=== PATIENT | female | born 1955 | race Caucasian/White ===

== ENCOUNTER 2019-06-14 10:07 | Emergency (ER) | payer MEDICARE, BC ==
[~2019-06-14] VITALS: Ht 177.8 cm; Wt 58.1 kg
--- NOTE | 2019-06-15 19:59 | EKG ---
[facility] [address] [place] [address] Signed Normal sinus rhythm Normal ECG No previous ECGs available Confirmed by LISA HE MD ([id number]) on 06/15/2019 7:59:22 PM Electronically Signed By: LISA HE MD 06/15/191958 PATIENT NAME: SHARMILA CHATMANHAROON Electrocardiogram DATE OF : 59 PHYSICIAN: LISA HE MD REPORT #: [id number] REPORT IS CONFIDENTIAL AND NOT TO BE RELEASED WITHOUT AUTHORIZATION
== END 2019-06-14 11:56 | disposition home or self-care (01) ==
LOC: ED 10:07
DX: F41.9 Anxiety disorder, unspecified (principal); F43.9 Reaction to severe stress, unspecified; R63.4 Abnormal weight loss
CPT/HCPCS: 71046; 80053; 84443; 84484; 85025; 93005; 93010; 99284-25

== ENCOUNTER 2019-07-14 13:05 | Emergency (ER) | payer MEDICARE, BC ==
[~2019-07-14] VITALS: Ht 177.8 cm; Wt 60.3 kg
--- OUTSIDE RECORDS SUMMARY | 2019-07-14 13:10 | XMS ---
PreManage Notification: SHARMILA CHATMAN Security Clinical Safety Manager Events No recent Security Events currently on file CRITERIA MET - [facility] - 2 Visits in 30 Days CARE PROVIDERS There are no care providers on record at this time. Yen has no Care Guidelines for this patient. [facility] VISIT COUNT (12 MO.) 2 [facility] [place] [facility] TOTAL 2 NOTE: Visits indicate total known visits. ED/[facility] VISIT TRACKING (12 MO.) 07/14/2019 13:[address] [facility] [place] TYPE: Emergency COMPLAINT: - WEAKNESS, LIGHTHEADEDNESS 06/14/2019 10:08 [facility] [place] TYPE: Emergency COMPLAINT: - WEIGHT LOSS, TINGLING IN FINGERS, SOB DIAGNOSES: - Reaction to severe stress, unspecified - Abnormal weight loss - Anxiety disorder, unspecified INPATIENT VISIT TRACKING (12 MO.) No inpatient visits to display in this time frame [email or web address]
--- NOTE | 2019-07-15 22:56 | EKG ---
[facility] [address] [address] [facility] [address] [place], [place] [address] Signed Normal sinus rhythm Normal ECG When compared with ECG of 14-JUN-2019 10:30, No significant change was found Confirmed by LISA HE MD ([id number]) on 07/15/2019 10:56:32 PM Electronically Signed By: LISA HE MD 07/15/19 2256 PATIENT NAME: SHARMILA CHATMAN CANDIS Electrocardiogram DATE OF : 59 PHYSICIAN: LISA HE MD REPORT #: [id number] REPORT IS CONFIDENTIAL AND NOT TO BE RELEASED WITHOUT AUTHORIZATION
== END 2019-07-14 17:08 | disposition home or self-care (01) ==
LOC: ED 13:05
DX: R42 Dizziness and giddiness (principal); F43.10 Post-traumatic stress disorder, unspecified; Z87.891 Personal history of nicotine dependence
CPT/HCPCS: 70450; 71045; 80053; 83735; 84443; 84484; 85025; 93005; 93010; 99284-25